=== PATIENT | male | born 1950 | race Caucasian/White ===

== ENCOUNTER → 2019-11-10 15:53 | Outpatient (CLI) | payer MEDICARE, OTHER, SELFPAY ==
--- NOTE | 2019-11-10 16:02 | DI.MRI.S_ITS ---
PROCEDURE: MR LUMBAR SPINE WO CON INDICATIONS: Low back pain TECHNIQUE: Noncontrast sagittal T1 spin echo and T2 fast echo, sagittal STIR, axial T1 and T2 fast spin echo through the lumbar spine. In cases with scoliosis, additional coronal T2 fast spin echo may be performed. COMPARISON: [facility], CR, XR LUMBAR SPINE WITH OLBIQUES PLUS FLEXION EXTENSION, 10/30/2019, 13:16. [facility], , L-SPINE WITHOUT CONTRAST, 03/29/2015, 13:03. FINDINGS: Image quality: Excellent. Alignment and Curvature: Minimal retrolisthesis is present at L1 on L2, L2 on L3, L3 on L4, L4 on 5 on S1 and trace anterolisthesis of L4 on L5. Bone Marrow: Marrow is of normal overall signal. No acute vertebral body compression fractures. Spinal Cord: Conus medullaris terminates at the L1-L2 level. Visualized cord demonstrates normal signal and size. Paraspinous Soft Tissues: No paravertebral masses. Kidneys are atrophic bilaterally with multiple cysts. In addition, there is questionable appearance of left hydronephrosis and proximal hydroureter. This area is incompletely visualized. Discs: Moderate to severe desiccation is present throughout the lumbar spine. L1-L2: Mild disc bulge with mild to moderate spinal stenosis. There is moderate bilateral foraminal narrowing, mildly progressive. Facet and ligamentum flavum hypertrophy as well as epidural lipomatosis are present. L2-L3: Mild disc bulge with severe spinal stenosis and canal flattening. Epidural lipomatosis is present. Severe bilateral foraminal narrowing, minimally progressive with facet and ligamentum flavum hypertrophy. L3-L4: Mild disc bulge with severe spinal stenosis and canal flattening. Moderate to severe left and severe right foraminal narrowing slightly progressive on the left with facet and ligamentum flavum hypertrophy. Epidural lipomatosis is present. L4-L5: Disc bulge with severe spinal stenosis and canal flattening. Severe bilateral foraminal narrowing, left greater than right minimally progressive with facet and ligamentum flavum hypertrophy. Epidural lipomatosis is present. L5-S1: Mild disc bulge with mild to moderate spinal stenosis. Moderate to severe bilateral foraminal narrowing the facets and ligamentum flavum hypertrophy. Overall appearance is relatively stable. IMPRESSION: 1. Significant focal degenerative changes there is interval progression as above. 2. Multilevel severe spinal stenosis secondary to disc bulges which contribute an artifact of prominent epidural lipomatosis as well as facet/ligamentum flavum arthropathy. 3. Multilevel areas of [id number]/severe foraminal narrowing, secondary to facet arthropathy. 4. Bilateral renal cysts. The left kidney is partially visualized and there is a question of parapelvic cyst versus development of interval hydronephrosis. Ultrasound is recommended for further evaluation. Dictated by: Gabi Church M.D. on 11/13/2019 at 12:10 Approved by: Gabi Church M.D. on 11/13/2019 at 12:18
== END ==
PROVIDERS: Family Provider Family Medicine; PCP Family Medicine; Referring Provider Physical Medicine & Rehabilitation Pain Medicine; Visit Provider Physical Medicine & Rehabilitation Pain Medicine
DX: M47.816 Spondylosis without myelopathy or radiculopathy, lumbar region (principal); M47.817 Spondylosis without myelopathy or radiculopathy, lumbosacral region; M48.061 Spinal stenosis, lumbar region without neurogenic claudication; M48.07 Spinal stenosis, lumbosacral region; M51.26 Other intervertebral disc displacement, lumbar region; M51.27 Other intervertebral disc displacement, lumbosacral region; E88.2 Lipomatosis, not elsewhere classified; N28.1 Cyst of kidney, acquired
CPT/HCPCS: 72148

== ENCOUNTER → 2022-06-11 12:07 | Outpatient (CLI) | payer MEDICARE, OTHER, SELFPAY ==
[2022-06-11 14:22] LABS: COVID19 -Nasal RAPID Negative (Negative)
--- NOTE | 2022-06-13 04:15 | DI.NM.S_ITS ---
DATE OF SERVICE: 06/11/2022 PROCEDURE PERFORMED: Pharmacologic vasodilator stress and rest myocardial perfusion imaging with gating to assess ejection fraction and regional wall motion. INDICATIONS: The patient is an obese 71-year-old diabetic, hypertensive male with exertional dyspnea. ORDERING PROVIDER: NAREN Brooke. CARDIAC STRESS: Per protocol, 0.4 mg of regadenoson was infused, with a normal hemodynamic response. He had mild dyspnea, but no chest discomfort. His resting ECG shows sinus rhythm with normal ST segments. There are no significant ST-segment shifts and there were no arrhythmias. Per protocol, 27.5 millicuries of technetium-99m Myoview was injected and he was imaged 15 minutes later using a gated SPECT acquisition protocol. The day prior, he had been injected with 24.7 millicuries of technetium-99m Myoview while at rest, and was imaged 40 minutes later, again using a gated SPECT acquisition protocol. FINDINGS: 1. Raw data: There is marginal image quality because of the patient's body habitus. The lung/heart ratio is normal at 0.28. While the TID ratio is estimated to be elevated at 1.38 which can be an indication of global ischemia, this is not evident visually and is nonspecific with the use of pharmacologic vasodilator stress. 2. Quantitated gated SPECT: Post-stress ejection fraction is estimated at 62% without any focal wall motion abnormality although image quality is quite poor. Specifically, the base of the inferolateral wall appears to have normal contractility. Resting ejection fraction is 65% with a normal resting end-diastolic volume of 104 mL. 3. Myocardial perfusion imaging: Post-stress supine images show a fairly normal myocardial perfusion pattern although with mildly reduced tracer activity at the base of the inferior and inferolateral segments in a pattern that would be suggestive of diaphragmatic attenuation artifact. Unfortunately, the patient was unable to lay prone to assess for this. The resting images show an essentially identical perfusion pattern without any clear areas of improvement. IMPRESSION: 1. Probable normal myocardial perfusion study although with somewhat reduced sensitivity because of marginal image quality and the patient's inability to liebprone. 2. Mild fixed proximal inferolateral perfusion defect, most likely related to diaphragmatic attenuation artifact. There is no compelling evidence for any significant myocardial ischemia or previous myocardial infarction. 3. Normal left ventricular systolic function without any focal wall motion abnormality and normal left ventricular volumes. While the transient ischemic dilatation ratio is mildly elevated at 1.38, this is nonspecific because of the marginal image quality and the use of vasodilators stress. 4. No angina or ECG evidence of ischemia with pharmacologic vasodilator stress. Paul Moreno - BRENNEN/esperanza/brayan doc#: [id number]/job#: [id number] dd: 06/12/2022 16:28:00 dt: 06/13/2022 04:04:00 DICTATING MD/COPIES TO: Preston Spicer MD COPIES MNE: TAMARA;
== END ==
PROVIDERS: Family Provider Family Medicine; PCP Nurse Practitioner Family; Referring Provider Nurse Practitioner Family; Visit Provider Nurse Practitioner Family
DX: R94.31 Abnormal electrocardiogram [ECG] [EKG] (principal); R06.09 Other forms of dyspnea; I10 Essential (primary) hypertension; E11.9 Type 2 diabetes mellitus without complications; E66.01 Morbid (severe) obesity due to excess calories; Z68.42 Body mass index [BMI] 45.0-49.9, adult; Z20.822 Contact with and (suspected) exposure to COVID-19
CPT/HCPCS: 78452; 87635; 93017; A9502; J2785